=== PATIENT | male | born 1995 | race Caucasian/White ===

== ENCOUNTER 2017-11-02 20:45 | Emergency (ER) | payer BC ==
--- NOTE | 2017-11-02 21:50 | EDM.PDOC ---
<Delma Becerra - Last Filed: 11/02/17 22:48> ED HPI GENERAL MEDICAL PROBLEM - General Chief Complaint: Neurological Problem Stated Complaint: TINGLY SENSATION RT HAND Time Seen by Provider: 11/02/17 21:29 - History of Present Illness INITIAL COMMENTS - FREE TEXT/NARRATIVE: This is Dr. Becerra dictating an addendum note is some care of this patient at 10 PM. We had a patient that was taking a long time and CAT scan and the patient was inquiring currently at 2245 with the delay was about and query when his image might occur. I discussed with him that we did have a patient that will be coming back shortly and that he would be the next person to be going to CAT scan and at this point he would like to refrain from doing that and just follow up in the clinic. - Related Data Allergies Allergy/AdvReac Type Severity Reaction Status Date / Time No Known Allergies Allergy Verified 11/02/17 21:05 Home Meds: Home Meds . [No Known Home Meds] 11/02/17 [History] Course - Vital Signs Last Recorded V/S: Last Vital Signs Temp 98.1 F 11/02/17 21:05 Pulse 70 11/02/17 21:05 Resp 18 11/02/17 21:05 BP 117/58 L 11/02/17 21:05 Pulse Ox 97 11/02/17 21:05 - Orders/Labs/Meds Labs: Laboratory Tests 11/02/17 11/02/17 Range/Units 21:56 21:56 WBC 7.30 (4.0-11.0) K/uL RBC 4.72 (4.50-5.90) M/uL Hgb 13.9 (13.0-17.0) g/dL Hct 38.6 (38.0-50.0) % MCV 81.8 (80.0-98.0) fL MCH 29.4 (27.0-32.0) pg MCHC 36.0 (31.0-37.0) g/dL RDW Std Deviation 37.5 (28.0-62.0) fl RDW Coeff of Sinan 13 (11.0-15.0) % Plt Count 203 (150-400) K/uL MPV 10.40 (7.40-12.00) fL Neut % (Auto) 40.8 L (48.0-80.0) % Lymph % (Auto) 49.2 H (16.0-40.0) % Bartow % (Auto) 8.1 (0.0-15.0) % Eos % (Auto) 1.2 (0.0-7.0) % Baso % (Auto) 0.7 (0.0-1.5) % Neut # (Auto) 3.0 (1.4-5.7) K/uL Lymph # (Auto) 3.6 H (0.6-2.4) K/uL [place] # (Auto) 0.6 (0.0-0.8) K/uL Eos # (Auto) 0.1 (0.0-0.7) K/uL Baso # (Auto) 0.1 (0.0-0.1) K/uL Nucleated RBC % 0.0 /100WBC Nucleated RBCs # 0 K/uL Sodium 137 (136-146) mmol/L Potassium 3.9 (3.5-5.1) mmol/L Chloride 104 (98-110) mmol/L Carbon Dioxide 26 (21-31) mmol/L BUN 16 (6.0-23.0) mg/dL Creatinine 1.1 (0.6-1.5) mg/dL Est Cr Clr Drug Dosing 107.84 mL/min Estimated GFR (MDRD) > 60.0 ml/min Glucose 101 (60-110) mg/dL Calcium 9.1 (8.8-10.8) mg/dL Total Bilirubin 1.4 (0.1-1.5) mg/dL AST 21 (5-40) IU/L ALT 13 (8-54) IU/L Alkaline Phosphatase 48 (40-150) Total Protein 7.0 (6.0-8.0) g/dL Albumin 4.1 (3.5-5.0) g/dL Globulin 2.9 (2.0-3.5) g/dL Albumin/Globulin Ratio 1.4 (1.3-2.8) Departure - Departure Time of Disposition: 22:49 Disposition: Home, Self-Care 01 Condition: Good Clinical Impression: Paresthesia of hand - Discharge Information Instructions: Paresthesia, [id number] Referrals: PCP,None [Primary Care Provider] - Forms: ED Department Discharge Additional Instructions: My general discharge The following information is given to patients seen in the emergency department who are being discharged to home. This information is to outline your options for follow-up care. We provide all patients seen in our emergency department with a follow-up referral. The need for follow-up, as well as the timing and circumstances, are variable depending upon the specifics of your emergency department visit. If you don't have a primary care physician on staff, we will provide you with a referral. We always advise you to contact your personal physician following an emergency department visit to inform them of the circumstance of the visit and for follow-up with them and/or the need for any referrals to a consulting specialist. The emergency department will also refer you to a specialist when appropriate. This referral assures that you have the opportunity for follow-up care with a specialist. All of these measure are taken in an effort to provide you with optimal care, which includes your follow-up. Under all circumstances we always encourage you to contact your private physician who remains a resource for coordinating your care. When calling for follow-up care, please make the office aware that this follow-up is from your recent emergency room visit. If for any reason you are refused follow-up, please contact the [facility] Emergency Department at and asked to speak to the emergency department charge nurse. [facility]: Primary Care [address] [place] [address] [id number] [facility]: EYE CLINIC [address] [place] [address] [facility] HAND CLINIC Specialty clinic-Plastic Surgery and Hand Surgery [address] [place] [id number] 1. Please establish care with a primary care provider for further evaluation of your symptoms. If you expressed interest in being assessed for diabetes type 2, as we discussed this with need to be a fasting blood glucose/A1c. 2. Follow-up with your eye doctor for routine visual exam. Please replace your contact lenses with a new set. 3. Return to the ED as needed and as we discussed. <Jasmyn Rivera E - Last Filed: 11/04/17 15:39> ED HPI GENERAL MEDICAL PROBLEM - General Source of Information: Reports: Patient History Limitations: Reports: No Limitations - History of Present Illness INITIAL COMMENTS - FREE TEXT/NARRATIVE: HISTORY AND PHYSICAL: History of present illness: Patient is a 22-year-old male who presents to the emergency room with complaints of left hand tingling. He states he was at work and noticed that he had a numb/tingling sensation to his left hand which has been going on for 3 hours now. He is right-hand dominant. 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 Patient is also concerned as he has some minor blurred vision which has been going on for several weeks. He does use contact lenses which she states are approximately one month old. A visual acuity was done with contact lenses in, this was 20/20 in both eyes and each individual eye. Pupils are equal and reactive bilaterally. Reports that he is concerned that he may have had a stroke or has 2 diabetes. He reports he has ceased concerns as these 2 illnesses run in his family, and found literature online which suggested either one of these. He denies any slurred speech, one-sided weakness, headache, chest pain or shortness of breath. His girlfriend at the bedside does state, "when he told me about his hand he wasn't making much sense... He seemed confused". Patient is currently alert and oriented and does not have any unilateral weakness. "I feel like I've had my hand up over my head or anything sitting on it". Patient denies any recent head or neck injury or trauma. Denies any excessive caffeine use. Denies any drug or alcohol abuse. Review of systems: As per history of present illness and below otherwise all systems reviewed and negative. Past medical history: As per history of present illness and as reviewed below otherwise noncontributory. Surgical history: As per history of present illness and as reviewed below otherwise noncontributory. Social history: No reported history of drug or alcohol abuse. Family history: As per history of present illness and as reviewed below otherwise noncontributory. Physical exam: Gen.: Well-developed and well-nourished 22-year-old male. Appears nontoxic and in no acute distress. Alert and oriented HEENT: Atraumatic, normocephalic, pupils equal and reactive bilaterally, negative for conjunctival pallor or scleral icterus, mucous membranes moist, tympanic membranes clear bilaterally, throat clear, neck supple, no lymphadenopathy, nontender, trachea midline. Lungs: Clear to auscultation, breath sounds equal bilaterally, chest nontender. Breathes easy and even. Heart: S1S2, regular rate and rhythm with no overt murmurs Abdomen: Soft, nondistended, nontender. Negative for masses or hepatosplenomegaly. Negative for costovertebral tenderness. Pelvis: Stable nontender. Genitourinary: Deferred. Rectal: Deferred. Extremities: Atraumatic, moves all extremities per self, full range of motion, negative for cords or calf pain. Strong radial pulses bilaterally. CMS intact. 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 Cap refill less than 3 seconds to upper extremity bilaterally. Neurovascular unremarkable. Negative Phalen and Tinnel signs. Skin: Mild redness noted to the dorsal aspect of left hand (the patient states that he has a chemical burn from diesel that got in his glove). No overt lesions , rashes or open sores. Neuro: Awake, alert, oriented. Cranial nerves II through XII unremarkable. Cerebellum unremarkable. Motor and sensory unremarkable throughout. Exam nonfocal. Patient states that he wants to be assessed for stroke and type 2 diabetes. We did discuss doing a head CT at this time, as the patient's girlfriend reported that he was "acting funny". I told him the likelihood of a stroke is very minimal as he does not have any symptoms adjusting this. I informed him that we can do a random blood glucose, but this would not be a definitive diagnosis of type 2 diabetes. I did educate him on a fasting glucose/A1c which would need to be done through his primary care provider. He voices understanding and is agreeable to plan of care. Patient declined CT- due to length of wait time. Diagnostics: CBC, CMP, head CT Therapeutics: [] Impression: Paresthesia Plan: 1. Please establish care with a primary care provider for further evaluation of your symptoms. If you expressed interest in being assessed for diabetes type 2, as we discussed this with need to be a fasting blood glucose/A1c. 2. Follow-up with your eye doctor for routine visual exam. Please replace your contact lenses with a new set. 3. Return to the ED as needed and as we discussed. Definitive disposition and diagnosis as appropriate pending reevaluation and review of above. Onset: Today Duration: Hour(s): Location: Reports: Upper Extremity, Left (3 hours prior to arrival) denies pain Pain Score (Numeric/FACES): 0 Past Medical History HEENT History: Reports: None Cardiovascular History: Reports: None Respiratory History: Reports: None Gastrointestinal History: Reports: None Genitourinary History: Reports: None Musculoskeletal History: Reports: None Neurological History: Reports: None Psychiatric History: Reports: None Endocrine/Metabolic History: Reports: None Hematologic History: Reports: None Immunologic History: Reports: None Oncologic (Cancer) History: Reports: None Dermatologic History: Reports: None - Infectious Disease History Infectious Disease History: Reports: None - Past Surgical History Head Surgeries/Procedures: Reports: None Social & Family History - Family History Family Medical History: Noncontributory - Tobacco Use Smoking Status *Q: Never Smoker - Caffeine Use Caffeine Use: Reports: Coffee - Recreational Drug Use Recreational Drug Use: No ED ROS GENERAL - Review of Systems Review Of Systems: See Below ED EXAM, NEURO - Physical Exam Exam: See Below (See dictation) Course - Orders/Labs/Meds Labs: Laboratory Tests 11/02/17 11/02/17 Range/Units 21:56 21:56 WBC 7.30 (4.0-11.0) K/uL RBC 4.72 (4.50-5.90) M/uL Hgb 13.9 (13.0-17.0) g/dL Hct 38.6 (38.0-50.0) % MCV 81.8 (80.0-98.0) fL MCH 29.4 (27.0-32.0) pg MCHC 36.0 (31.0-37.0) g/dL RDW Std Deviation 37.5 (28.0-62.0) fl RDW Coeff of Sinan 13 (11.0-15.0) % Plt Count 203 (150-400) K/uL MPV 10.40 (7.40-12.00) fL Neut % (Auto) 40.8 L (48.0-80.0) % Lymph % (Auto) 49.2 H (16.0-40.0) % [place]ow % (Auto) 8.1 (0.0-15.0) % Eos % (Auto) 1.2 (0.0-7.0) % Baso % (Auto) 0.7 (0.0-1.5) % Neut # (Auto) 3.0 (1.4-5.7) K/uL Lymph # (Auto) 3.6 H (0.6-2.4) K/uL [place] # (Auto) 0.6 (0.0-0.8) K/uL Eos # (Auto) 0.1 (0.0-0.7) K/uL Baso # (Auto) 0.1 (0.0-0.1) K/uL Nucleated RBC % 0.0 /100WBC Nucleated RBCs # 0 K/uL Sodium 137 (136-146) mmol/L Potassium 3.9 (3.5-5.1) mmol/L Chloride 104 (98-110) mmol/L Carbon Dioxide 26 (21-31) mmol/L BUN 16 (6.0-23.0) mg/dL Creatinine 1.1 (0.6-1.5) mg/dL Est Cr Clr Drug Dosing 107.84 mL/min Estimated GFR (MDRD) > 60.0 ml/min Glucose 101 (60-110) mg/dL Calcium 9.1 (8.8-10.8) mg/dL Total Bilirubin 1.4 (0.1-1.5) mg/dL AST 21 (5-40) IU/L ALT 13 (8-54) IU/L Alkaline Phosphatase 48 (40-150) Total Protein 7.0 (6.0-8.0) g/dL Albumin 4.1 (3.5-5.0) g/dL Globulin 2.9 (2.0-3.5) g/dL Albumin/Globulin Ratio 1.4 (1.3-2.8)
[2017-11-02 22:36] LABS: CHLORIDE,CL 104 mmol/L (98-110); SODIUM,NA 137 mmol/L (136-146)
== END 2017-11-02 23:02 | disposition home or self-care (01) ==
LOC: MW.ED 20:45
DX: R20.2 Paresthesia of skin (principal)
CPT/HCPCS: 36415; 80053; 85025; 99284